=== PATIENT | female | born 2000 | race African-American/Black ===

== ENCOUNTER 2022-11-27 23:23 | Emergency (ER) | payer OTHER ==
[2022-11-27 23:33] VITALS: BP 128/86; PULSE 99; RESP 20; TEMP 98.8; BMI 23.0
[2022-11-28 00:59] LABS: HEMATOCRIT 34.6 % (32.4-45.2); HEMOGLOBIN 11.1 GM/dL (10.7-15.3); MCH 23.1 pg (25.7-33.7); MEAN CELL VOLUME 72.1 fl (80-96); MEAN PLT VOLUME 6.8 fl (7.5-11.1); PLATELET COUNT 528 10^3/uL (134-434); RBC 4.79 M/mm3 (3.60-5.2); RDW 15.2 % (11.6-15.6); WHITE BLOOD COUNT 12.4 K/mm3 (4.0-10.0)
[2022-11-28 01:18] LABS: POTASSIUM 4.3 mmol/L (3.5-5.1)
[2022-11-28] MEDS ORDERED: CEFTRIAXONE 1,000 MG in DEXTROSE 5%-WATER - 50 ML IVPB ONE (01:20)
[2022-11-28 01:21] LABS: ALBUMIN 3.4 g/dl (3.4-5.0); BLOOD UREA NITROGEN 7.8 mg/dL (7-18); CALCIUM 9.4 mg/dL (8.5-10.1)
[2022-11-28] MEDS ORDERED: CEFTRIAXONE 1 GM/50 ML BAG ONE (01:22)
[2022-11-28 01:24] LABS: CREATININE 0.7 mg/dL (0.55-1.3)
[2022-11-28 01:26] LABS: BILIRUBIN,TOTAL 0.5 mg/dL (0.2-1); TOT PROT 9.1 g/dl (6.4-8.2)
== END 2022-11-28 04:19 | disposition home or self-care (01) ==
LOC: JER 23:23
DX: O99.711 Diseases of the skin and subcutaneous tissue complicating pregnancy, first trimester (principal); R22.0 Localized swelling, mass and lump, head; H05.221 Edema of right orbit; H05.222 Edema of left orbit; L03.211 Cellulitis of face; O99.611 Diseases of the digestive system complicating pregnancy, first trimester; K02.9 Dental caries, unspecified; Z3A.01 Less than 8 weeks gestation of pregnancy
CPT/HCPCS: 36415; 70487-TC; 80053; 84702; 85027; 87040; 99285-25

== ENCOUNTER 2023-07-24 22:58 | Inpatient (IN) | payer OTHER ==
[2023-07-24 23:21] VITALS: BMI 27.8
[2023-07-25] MEDS: DEXTROSE 5%-LACTATED RINGERS 1,000 ML IV SCH (01:00)
[2023-07-25 01:55] LABS: BASO % 0.5 % (0-2.0); EOS % 1.4 % (0-4.5); HEMATOCRIT 38.1 % (32.4-45.2); HEMOGLOBIN 12.2 GM/dL (10.7-15.3); LYMPH % 33.6 % (8-40); MCH 26.6 pg (25.7-33.7); MCHC 32.1 g/dl (32.0-36.0); MEAN PLT VOLUME 7.5 fl (7.5-11.1); MONO % 9.7 % (3.8-10.2); NEUT % 54.8 % (42.8-82.8); PLATELET COUNT 361 10^3/uL (134-434); RDW 13.5 % (11.6-15.6)
[2023-07-25 02:25] LABS: POTASSIUM 3.9 mmol/L (3.5-5.1)
[2023-07-25 02:29] LABS: ALBUMIN 2.5 g/dl (3.4-5.0); BLOOD UREA NITROGEN 7.6 mg/dL (7-18)
[2023-07-25 02:32] LABS: CREATININE 0.6 mg/dL (0.55-1.3)
[2023-07-25 02:34] LABS: BILIRUBIN,TOTAL 0.2 mg/dL (0.2-1); TOT PROT 7.8 g/dl (6.4-8.2)
[2023-07-25 02:52] LABS: EPI CELLS 7 /uL (0-25.1); HYALINE CASTS 3 /uL (0-3.1); PH,URINE 6.5 (5.0-8.0); URINE APPEARANCE CLEAR; URINE BACTERIA 1740 /uL (0-1359); URINE BILIRUBIN NEGATIVE (NEGATIVE); URINE COLOR YELLOW; URINE GLUCOSE (UA) NEGATIVE (NEGATIVE); URINE KETONE NEGATIVE (NEGATIVE); URINE LEUK ESTERASE 1+ (NEGATIVE); URINE NITRITE NEGATIVE (NEGATIVE); URINE PROTEIN NEGATIVE (NEGATIVE); URINE RBC 28 /uL (0-23.9); URINE WBC 153 /uL (0-25.8)
[2023-07-25] MEDS: DINOPROSTONE 10 MG VAGINAL SUPPOSITORY VG ONE (05:15)
[2023-07-25] MEDS ORDERED: NIFEdipine E.R. 30 MG TABLET PO ONE (05:17)
[2023-07-25] MEDS: NIFEdipine E.R. 30 MG TABLET PO SCH (05:25)
[2023-07-25 06:05] LABS: INR 0.93 (0.83-1.09); PROTHROMBIN TIME (PATIENT) 10.8 SEC (9.7-13.0)
[2023-07-25 06:08] LABS: ACTIVATED PTT 27.7 SECONDS (25.2-36.5)
[2023-07-25] MEDS: DINOPROSTONE 10 MG VAGINAL SUPPOSITORY VG STA (18:28)
[2023-07-25] MEDS ORDERED: PROMETHAZINE HCL 25 MG/1 ML VIAL IVPB PRN (18:40)
[2023-07-25] MEDS ORDERED: ONDANSETRON 4 MG/2 ML VIAL ONE (23:29)
[2023-07-25] MEDS: ONDANSETRON 4 MG/2 ML VIAL IVPB ONE (23:50)
[2023-07-26] MEDS: NIFEdipine E.R. 30 MG TABLET PO SCH (05:30)
[2023-07-26] MEDS ORDERED: NIFEdipine E.R. 30 MG TABLET PO ONE (05:30)
[2023-07-26] MEDS ORDERED: FENTANYL/BUPIVACAINE/NS/PF - PCEA - 50 ML DISP.SYRIN EP ONE (06:08)
[2023-07-26] MEDS ORDERED: NALOXONE HCL 0.4 MG/ML VIAL IVPUSH PRN (06:21)
[2023-07-26] MEDS ORDERED: LIDO 2%/EPI 1:200000 PRESRVFRE (20 ML SDVIAL) ONE (06:22)
[2023-07-26] MEDS ORDERED: BUPIVACAINE HCL/PF 0.25% (2.5MG/ML) 10 ML VIAL ONE (06:22)
[2023-07-26] MEDS ORDERED: OXYTOCIN 20 UNITS in 0.9% NS 20 UNIT/1,000 ML INFUS.BAG IV ONE ×2 (06:38→08:33)
[2023-07-26] MEDS ORDERED: MISOPROSTOL 200 MCG TABLET ONE (06:39)
[2023-07-26] MEDS: OXYTOCIN 20 UNITS in 0.9% NS 20 UNIT/1,000 ML INFUS.BAG IV SCH ×2 (06:49→08:04)
[2023-07-26] MEDS ORDERED: BENZOCAINE 28 GM HEMORRHOIDAL OINTMENT TP PRN (07:21)
[2023-07-26] MEDS ORDERED: IBUPROFEN 600 MG TABLET (FP) PO PRN (07:21)
[2023-07-26] MEDS ORDERED: BISACODYL 10 MG SUPP.RECT RC PRN (07:21)
[2023-07-26] MEDS ORDERED: WITCH HAZEL 50% (TUCKS) 40 PAD/JAR PAD TP PRN (07:21)
[2023-07-26] MEDS ORDERED: BENZOCAINE 20% 57 GM BOTTLE TP PRN (07:21)
[2023-07-26 07:29] LABS: CORD HCO3 23.8 mmHg (20-29); CORD PCO2 62.1 mmHg (30-78); CORD pH 7.202 (7.14-7.44)
[2023-07-26 07:30] LABS: CORD BASE EXCESS -2.8 mmol/L (0-2); CORD HCO3 23.7 mmHg (20-29); CORD PCO2 47.1 mmHg (30-78); CORD pH 7.32 (7.14-7.44)
[2023-07-26] MEDS: FENTANYL/BUPIVACAINE/NS/PF - PCEA - 50 ML DISP.SYRIN EP SCH (07:38)
[2023-07-26] MEDS: METHYLERGONOVINE MALEATE 0.2 MG/1 ML AMP IM PRN (07:45)
[2023-07-26] MEDS ORDERED: morphine SULFATE 4 MG/ML VIAL ONE (08:07)
[2023-07-26] MEDS: morphine SULFATE 4 MG/ML VIAL IVPUSH ONE (08:09)
[2023-07-26] MEDS ORDERED: PROPOFOL 20 ML ONE (08:17)
[2023-07-26] MEDS ORDERED: SUCCINYLCHOLINE CHLORIDE 200 MG/10 ML SYRINGE ONE (08:17)
[2023-07-26 08:42] LABS: BASO % 0.1 % (0-2.0); HEMATOCRIT 36.2 % (32.4-45.2); HEMOGLOBIN 11.6 GM/dL (10.7-15.3); LYMPH % 5.4 % (8-40); MCH 26.4 pg (25.7-33.7); MCHC 32.1 g/dl (32.0-36.0); MEAN CELL VOLUME 82.4 fl (80-96); MEAN PLT VOLUME 7.3 fl (7.5-11.1); MONO % 3.9 % (3.8-10.2); NEUT % 90.6 % (42.8-82.8); PLATELET COUNT 363 10^3/uL (134-434); RBC 4.39 M/mm3 (3.60-5.2); RDW 13.5 % (11.6-15.6); WHITE BLOOD COUNT 12.6 K/mm3 (4.0-10.0)
[2023-07-26 08:59] LABS: ACTIVATED PTT 30.2 SECONDS (25.2-36.5); INR 0.93 (0.83-1.09); PROTHROMBIN TIME (PATIENT) 10.8 SEC (9.7-13.0)
[2023-07-26 09:05] LABS: POTASSIUM 3.7 mmol/L (3.5-5.1)
[2023-07-26 09:09] LABS: CALCIUM 8.1 mg/dL (8.5-10.1)
[2023-07-26 09:10] LABS: ALBUMIN 2.1 g/dl (3.4-5.0); BLOOD UREA NITROGEN 3.4 mg/dL (7-18)
[2023-07-26 09:13] LABS: CREATININE 0.7 mg/dL (0.55-1.3)
[2023-07-26 09:14] LABS: BILIRUBIN,TOTAL 0.5 mg/dL (0.2-1)
[2023-07-26 09:15] LABS: TOT PROT 6.4 g/dl (6.4-8.2)
[2023-07-26] MEDS: ceFAZolin SODIUM 1 GM VIAL IVPB ONE (09:20)
[2023-07-26] MEDS: AZITHROMYCIN 500 MG VIAL IVPB ONE (09:28)
[2023-07-26] MEDS: LACTATED RINGERS SOLUTION 1,000 ML IV SCH (10:41)
[2023-07-26 17:36] LABS: HEMATOCRIT 28.5 % (32.4-45.2); HEMOGLOBIN 9.2 GM/dL (10.7-15.3); MCH 26.6 pg (25.7-33.7); MCHC 32.2 g/dl (32.0-36.0); MEAN CELL VOLUME 82.6 fl (80-96); MEAN PLT VOLUME 7.5 fl (7.5-11.1); PLATELET COUNT 310 10^3/uL (134-434); RBC 3.45 M/mm3 (3.60-5.2); RDW 13.4 % (11.6-15.6); WHITE BLOOD COUNT 25.1 K/mm3 (4.0-10.0)
[2023-07-26 20:15] LABS: ANISOCYTOSIS 0; MACROCYTOSIS 0
[2023-07-27] MEDS: ACETAMINOPHEN 325 MG TABLET (FP) PO PRN (01:58)
[2023-07-27] MEDS: CEFAZOLIN SODIUM 2 GM VIAL IVPB ONE (07:00)
[2023-07-27] MEDS: CEFAZOLIN SODIUM 2 GM in DEXTROSE 5%-WATER 100 ML IVPB ONE (07:00)
[2023-07-27] MEDS: AZITHROMYCIN IVPB 500 MG/250 ML BAG IVPB ONE (07:00)
[2023-07-27 08:42] LABS: BASO % 0.3 % (0-2.0); EOS % 0.2 % (0-4.5); HEMATOCRIT 20.9 % (32.4-45.2); LYMPH % 18.4 % (8-40); MCH 26.4 pg (25.7-33.7); MCHC 32.2 g/dl (32.0-36.0); MEAN CELL VOLUME 82.1 fl (80-96); MONO % 5.5 % (3.8-10.2); NEUT % 75.6 % (42.8-82.8); PLATELET COUNT 247 10^3/uL (134-434); RBC 2.55 M/mm3 (3.60-5.2); RDW 13.5 % (11.6-15.6); WHITE BLOOD COUNT 12.8 K/mm3 (4.0-10.0)
[2023-07-27] MEDS: BUTORPHANOL TARTRATE 1 MG/ML VIAL IVPB ONE (08:46)
[2023-07-27 08:49] LABS: HEMOGLOBIN 6.7 GM/dL (10.7-15.3)
[2023-07-27] MEDS: FERROUS SO4 325 MG TABLET (FP) PO SCH (10:26)
[2023-07-27] MEDS: NIFEdipine E.R. 30 MG TABLET PO SCH (10:26)
[2023-07-27] MEDS: DIPHTH,PERTUSS(ACELL),TET 0.5 ML DISP.SYRIN IM ONE (15:46)
[2023-07-27] MEDS: FLU VACCINE (FLULAVAL) PF 60 MCG/0.5 ML SYRINGE 2023-2024 IM ONE (15:49)
[2023-07-28 07:00] LABS: BASO % 0.4 % (0-2.0); EOS % 1.5 % (0-4.5); HEMATOCRIT 23.4 % (32.4-45.2); HEMOGLOBIN 7.6 GM/dL (10.7-15.3); LYMPH % 24.7 % (8-40); MCH 26.8 pg (25.7-33.7); MCHC 32.3 g/dl (32.0-36.0); MEAN CELL VOLUME 82.9 fl (80-96); MEAN PLT VOLUME 7.2 fl (7.5-11.1); MONO % 6.4 % (3.8-10.2); PLATELET COUNT 323 10^3/uL (134-434); RBC 2.83 M/mm3 (3.60-5.2); RDW 13.9 % (11.6-15.6); WHITE BLOOD COUNT 11.4 K/mm3 (4.0-10.0)
[2023-07-28] MEDS: SENNOSIDES/DOCUSATE COMBO (SENNA PLUS) TABLET (UD) PO PRN (21:36)
[2023-07-28 22:08] VITALS: RESP 18
[2023-07-29 06:02] VITALS: TEMP 97.7
[2023-07-29 11:57] VITALS: BP 127/83; PULSE 113
== END 2023-07-29 13:40 | disposition home or self-care (01) | DRG 541 ==
LOC: JER 22:58 → JLDR 07-25 03:00 → J3W 07-26 12:01
PROVIDERS: ADMIT Obstetrics & Gynecology; ATTEND Obstetrics & Gynecology
PROC: 0KQM0ZZ Repair Perineum Muscle, Open Approach (ICD-10-PCS; 2023-07-26)
PROC: 10D17ZZ Extraction of Products of Conception, Retained, Via Natural or Artificial Opening (ICD-10-PCS; 2023-07-26)
PROC: 0W3R7ZZ Control Bleeding in Genitourinary Tract, Via Natural or Artificial Opening (ICD-10-PCS; 2023-07-26)
PROC: 30233N1 Transfusion of Nonautologous Red Blood Cells into Peripheral Vein, Percutaneous Approach (ICD-10-PCS; 2023-07-26)
PROC: 10E0XZZ Delivery of Products of Conception, External Approach (ICD-10-PCS; principal; 2023-07-26 09:00)
DX: O13.4 Gestational [pregnancy-induced] hypertension without significant proteinuria, complicating childbirth (principal); O70.1 Second degree perineal laceration during delivery; Z3A.38 38 weeks gestation of pregnancy; Z37.0 Single live birth; O72.1 Other immediate postpartum hemorrhage; O72.2 Delayed and secondary postpartum hemorrhage
CPT/HCPCS: 36415; 36600; 76819-TC; 80053; 81003; 82570; 82803; 84156; 85025; 85610; 85730; 86780; 86850; 86900; 86901; 88305-TC; 88307-TC; 90686; 90715; 94760; 99285-25; G0008